=== PATIENT | male | born 1990 | race Caucasian/White ===

== ENCOUNTER 2019-08-29 03:46 | Emergency (ER) | payer OTHER ==
--- NOTE | 2019-08-29 04:01 | PDOC ---
Attending Attestation - Resident Resident Name: Elizabeth Maloney - ED Attending Attestation I have performed the following: I have examined & evaluated the patient, The case was reviewed & discussed with the resident, I agree w/resident's findings & plan - HPI HPI: 08/29/19 04:16 see resident hpi - Physicial Exam PE: 08/29/19 04:17 agree with resident exam - Medical Decision Making 08/29/19 04:17 29-year-old male with acute shortness of breath and wheezing after exposure to animal hair Plan for Solu-Medrol 125 mg IV and DuoNeb's x3 with plans for eventual DC home on a Medrol Dosepak and albuterol inhaler
[2019-08-29] MEDS ORDERED: ALBUTEROL SO4 2.5/IPRATROPIUM 0.5 INH SOL 3 ML VIAL.NEB. NEB ONE (04:02)
[2019-08-29 04:12] VITALS: BMI 25.4
[2019-08-29] MEDS ORDERED: methylPREDNISolone NA SUCC 125 MG/2 ML VIAL IVPB ONE (04:17)
--- NOTE | 2019-08-29 04:19 | PDOC ---
History of Present Illness - General Chief Complaint: Allergic Reaction Stated Complaint: Allergic Reaction Time Seen by Provider: 08/29/19 03:56 - History of Present Illness Initial Comments: 08/29/19 04:14 29 yo M PMH cat/dust/peanut allergies, 1ppd smoker since 13 years old, presenting with shortness of breath. Reports that he was visiting his friend, who owns cats and also was recently cleaning. Ran out of his home albuterol. States that this feels identical to his previous reactions. Specifically denies CP, N/V, fevers/chills, recent travel, sick contacts, recent illness. Past History - Past Medical History Allergies/Adverse Reactions: Allergies Allergy/AdvReac Type Severity Reaction Status Date / Time cat dander Allergy Verified 08/29/19 04:15 Home Medications: Ambulatory Orders Albuterol Sulfate Inhaler - [Ventolin HFA Inhaler -] 1 - 2 inh PO QID PRN #1 inhaler 08/29/19 - Psycho Social/Smoking Cessation Hx Smoking History: Never smoked Review of Systems - Review of Systems Able to Perform ROS?: Yes Constitutional: No: Chills, Diaphoresis, Fever HEENTM: No: Recent change in vision, Double Vision, Tinnitus, Throat Pain, Throat Swelling Respiratory: Yes: Shortness of Breath. No: Cough, Orthopnea Cardiac (ROS): No: Chest Pain, Edema, Irregular Heart Rate, Chest Tightness ABD/GI: No: Constipated, Diarrhea, Nausea, Vomiting : No: Flank Pain Musculoskeletal: No: Back Pain, Neck Pain Neurological: No: Headache, Numbness, Tingling, Weakness *Physical Exam - Vital Signs Last Vital Signs Temp Pulse Resp BP Pulse Ox 97.4 F L 89 19 148/89 98 08/29/19 03:46 08/29/19 03:46 08/29/19 03:46 08/29/19 03:46 08/29/19 03:46 - Physical Exam Comments: 08/29/19 04:16 Gen: well-developed, well-nourished, mild distress Neuro: AAOX4, CN II-XII intact, FTN intact, EOMI, PERRLA, 5/5 strength, SILT HEENT: atraumatic, normocephalic Neck: trachea midline, supple CV: regular rate, regular rhythm, no murmurs, rubs, or gallops Pulm: diffuse inspiratory and expiratory wheezing Abd: soft, non-distended, non-tender MSK: full ROM, intact pulses Extr: no edema, no deformities Skin: warm, dry 08/29/19 04:18 ED Treatment Course - RADIOLOGY Radiology Studies Ordered: Category Date Time Status CXRPORT [CHEST X-RAY PORTABLE*] [RAD] Stat Radiology 08/29/19 04:02 Ordered Medical Decision Making - Medical Decision Making 08/29/19 04:18 Concern for allergic reaction, SOB. - EKG - CXR port - Duoneb X3 - Solu-Medrol - reassess 08/29/19 04:29 Patient reassessed, feels significantly better, wheezing improved but still present. 08/29/19 04:52 Patient decline 2 other Duoneb, would like to go home. Wheezing completely resolved, patient feeling back to baseline. Will dc home. Discharge - Discharge Information Problems reviewed: Yes Clinical Impression/Diagnosis: Shortness of breath Condition: Fair Disposition: HOME - Additional Discharge Information Prescriptions: Albuterol Sulfate Inhaler - [Ventolin HFA Inhaler -] 1 - 2 inh PO QID PRN #1 inhaler PRN Reason: Short Of Breath/Wheezing - Follow up/Referral Referrals: Fuentes Barron MD [Primary Care Provider] - - Patient Discharge Instructions Patient Printed Discharge Instructions: DI for General Allergic Reactions Additional Instructions: You were seen with shortness of breath. This is likely to have been an allergic reaction. Please take your albuterol inhaler as needed. Follow up with your primary care doctor within one week. Return to the ED if you develop worsening symptoms. - Post Discharge Activity
[2019-08-29] MEDS ORDERED: methylPREDNISolone NA SUCC 125 MG/2 ML VIAL ONE (04:25)
[2019-08-29 05:08] VITALS: BP 142/84; PULSE 98; TEMP 98
--- NOTE | 2019-08-29 09:21 | EKG ---
Test Reason : Blood Pressure : / mmHG Vent. Rate : 104 BPM Atrial Rate : 104 BPM P-R Int : 126 ms QRS Dur : 098 ms QT Int : 368 ms P-R-T Axes : 068 075 049 degrees QTc Int : 483 ms SINUS TACHYCARDIA OTHERWISE NORMAL ECG NO PREVIOUS ECGS AVAILABLE Confirmed by MD Elana, Akin ([id number]) on 08/29/2019 9:21:00 AM Referred By: Confirmed By:Akin Huitron MD
== END 2019-08-29 05:00 | disposition home or self-care (01) ==
LOC: JER 03:46
PROC: 3E0F7GC Introduction of Other Therapeutic Substance into Respiratory Tract, Via Natural or Artificial Opening (ICD-10-PCS; principal; 2019-08-29)
PROC: 3E0333Z Introduction of Anti-inflammatory into Peripheral Vein, Percutaneous Approach (ICD-10-PCS; 2019-08-29)
DX: J30.81 Allergic rhinitis due to animal (cat) (dog) hair and dander (principal); R06.02 Shortness of breath; Z91.010 Allergy to peanuts
CPT/HCPCS: 93005; 93010; 94640; 96374; 99282-25

== ENCOUNTER 2020-07-18 12:18 | Emergency (ER) | payer OTHER ==
[2020-07-18 12:27] VITALS: BP 107/64; PULSE 98; TEMP 98.7; BMI 19.3
[2020-07-18] MEDS ORDERED: LIDOCAINE HCL 2% JELLY 10 ML CARTRIDGE PR ONE (12:45)
[2020-07-18] MEDS ORDERED: LIDOCAINE HCL 1%, 10 MG/ML (50 mL VIAL) INF ONE (12:45)
[2020-07-18] MEDS ORDERED: LIDOCAINE HCL 2% JELLY 10 ML CARTRIDGE ONE (12:45)
[2020-07-18] MEDS ORDERED: LIDOCAINE HCL 1%, 10 MG/ML (20ML VIAL) ONE (12:46)
--- NOTE | 2020-07-18 13:38 | PDOC ---
Suture Removal/Wound Check HPI - History of Present Illness Chief Complaint: Laceration Stated Complaint: LACERATION (LFT HAND) Time Seen by Provider: 07/18/20 12:38 Past History - Medical History Allergies/Adverse Reactions: Allergies Allergy/AdvReac Type Severity Reaction Status Date / Time peanut Allergy Intermediate Hives Verified 07/18/20 12:51 cat dander Allergy Verified 07/18/20 12:51 Home Medications: Ambulatory Orders NK [No Known Home Medication] 07/18/20 COPD: No - Psycho-Social/Smoking History Smoking History: Never smoked - Substance Abuse Hx (Audit-C & DAST Scrn) How often the patient has a drink containing alcohol: Monthly or less Number of drinks the patient has on a typical day: 1 or 2 How often the patient has six or more drinks on one occasion: Never Score: In Men: 4 or > Positive; In Women: 3 or > Positive: 1 Screen Result (Pos requires Nsg. Audit-10AR): Negative In the last yr the pt used illegal drug/Rx for NonMed reason: No Score: Yes response is considered Positive: 0 Screen Result (Positive result requires Nsg. DAST-10): Negative *Physical Exam - Vital Signs Last Vital Signs Temp Pulse Resp BP Pulse Ox 98.7 F 98 H 18 107/64 98 07/18/20 12:22 07/18/20 12:22 07/18/20 12:22 07/18/20 12:22 07/18/20 12:22
--- NOTE | 2020-07-18 13:43 | PDOC ---
History of Present Illness - History of Present Illness Initial Comments: 07/18/20 13:38 30yo healthy M w/ no PMHx presents w/ 2cm linear laceration to the L thenar eminence. He was cutting down boxes with a box chipper when he accidentally sliced himself. This was inadvertent. He presented w/ the wound wrapped, and it was oozing slowly when the dressing was removed. No fevers, bleeding disorders, medications. VS wnl and stable. Tetanus w/in the last 5 years. Thumb: Able to flex, extend, oppose, ADduct and ABduct. Cap refill <2sec. sensation is decreased - endorses paresthesia in the thumb and thenar eminence only. no scaphoid tenderness. no wrist complaints. No MCP, PIP, or DCP complaints. No other fingers affected. Able to demonstrate intact radial, median, and ulnar nerve function. <Brian Araiza - Last Filed: 07/18/20 13:53> <Cristy Hinds - Last Filed: 07/18/20 13:55> - General Chief Complaint: Laceration Stated Complaint: LACERATION (LFT HAND) Time Seen by Provider: 07/18/20 12:38 Past History - Medical History COPD: No - Psycho-Social/Smoking History Smoking History: Never smoked - Substance Abuse Hx (Audit-C & DAST Scrn) How often the patient has a drink containing alcohol: Monthly or less Number of drinks the patient has on a typical day: 1 or 2 How often the patient has six or more drinks on one occasion: Never Score: In Men: 4 or > Positive; In Women: 3 or > Positive: 1 Screen Result (Pos requires Nsg. Audit-10AR): Negative In the last yr the pt used illegal drug/Rx for NonMed reason: No Score: Yes response is considered Positive: 0 Screen Result (Positive result requires Nsg. DAST-10): Negative <Brian Araiza - Last Filed: 07/18/20 13:53> <Cristy Hinds - Last Filed: 07/18/20 13:55> - Medical History Allergies/Adverse Reactions: Allergies Allergy/AdvReac Type Severity Reaction Status Date / Time peanut Allergy Intermediate Hives Verified 07/18/20 12:51 cat dander Allergy Verified 07/18/20 12:51 Home Medications: Ambulatory Orders NK [No Known Home Medication] 07/18/20 Review of Systems - Review of Systems Able to Perform ROS?: Yes Constitutional: No: Chills, Fever HEENTM: No: Symptoms Reported Respiratory: No: Symptoms reported Cardiac (ROS): No: Symptoms Reported ABD/GI: No: Symptoms Reported : No: Symptoms Reported Musculoskeletal: Yes: Other (Thumb: Able to flex, extend, oppose, ADduct and ABduct. Cap refill <2sec. sensation is decreased - endorses paresthesia in the thumb and thenar eminence only. no scaphoid tenderness. no wrist complaints.). No: Joint Pain, Muscle Pain Integumentary: Yes: Lesions (2cm linear lesion to the L thenar eminence ) Neurological: Yes: Numbness (L thenar eminence), Paresthesia (L thenar eminence), Tingling (L thenar eminence) Endocrine: No: Symptoms Reported Hematologic/Lymphatic: No: Symptoms Reported All Other Systems: Reviewed and Negative <Brian Araiza - Last Filed: 07/18/20 13:53> *Physical Exam - Vital Signs Last Vital Signs Temp Pulse Resp BP Pulse Ox 98.7 F 98 H 18 107/64 98 07/18/20 12:22 07/18/20 12:22 07/18/20 12:22 07/18/20 12:22 07/18/20 12:22 - Physical Exam General Appearance: Yes: Nourished, Appropriately Dressed. No: Apparent Distress HEENT: positive: EOMI Neck: positive: Supple Respiratory/Chest: positive: Lungs Clear. negative: Chest Tender Cardiovascular: positive: Regular Rhythm, Regular Rate Gastrointestinal/Abdominal: positive: Normal Bowel Sounds, Soft Extremity: positive: Normal Capillary Refill, Normal Range of Motion (Thumb: Able to flex, extend, oppose, ADduct and ABduct. Cap refill <2sec. sensation is decreased - endorses paresthesia in the thumb and thenar eminence only. no scaphoid tenderness. no wrist complaints.). negative: Normal Inspection (Thumb: Able to flex, extend, oppose, ADduct and ABduct. Cap refill <2sec. sensation is decreased - endorses paresthesia in the thumb and thenar eminence only. no scaphoid tenderness. no wrist complaints.), Delayed Capillary Refill Neurologic: positive: Fully Oriented, Alert, Normal Response <Brian Araiza - Last Filed: 07/18/20 13:53> - Vital Signs Last Vital Signs Temp Pulse Resp BP Pulse Ox 98.7 F 98 H 18 107/64 98 07/18/20 12:22 07/18/20 12:22 07/18/20 12:22 07/18/20 12:22 07/18/20 12:22 <Cristy Hinds - Last Filed: 07/18/20 13:55> Procedures - Laceration/Wound Repair Left Upper Dorsal Hand Wound Length: to 2.5 cm Wound Explored: clean, no foreign body present Wound's Depth, Shape: linear Irrigated w/ Saline: Yes Betadine Prep: No (Chlorhexidine) Anesthesia: 1% Lidocaine Amount of Anesthetic (ccs): 7 Wound Debrided: moderate Wound Repaired With: Sutures Suture Size/Type: 4:0 Number of Sutures: 7 Sterile Dressing Applied: No Progress: 07/18/20 13:47 wound was measured to be ~2cm and linear. topical 1% lidocaine w/o epi was applied to wound wound was irrigated and then area was numbed with injected lidocaine 1% w/o epi borders were well approximated w/ 4-0 nylon x7 using simple interrupted. pt tolerated procedure well. bacitracin applied to lesion. <Brian Araiza - Last Filed: 07/18/20 13:53> ED Treatment Course - Medications Given in the ED: ED Medications Discontinued Medications Generic Name Dose Route Start Last Admin Trade Name Freq PRN Reason Stop Dose Admin Lidocaine HCl 10 ml 07/18/20 12:45 07/18/20 12:49 Xylocaine 1% INF 07/18/20 12:46 10 ml ONCE ONE Administration Lidocaine HCl 20 ml 07/18/20 12:45 07/18/20 12:49 Xylocaine 2% Uro-Jet UT 07/18/20 12:46 20 ml ONCE ONE Administration <Brian Araiza - Last Filed: 07/18/20 13:53> - Medications Given in the ED: ED Medications Discontinued Medications Generic Name Dose Route Start Last Admin Trade Name Freq PRN Reason Stop Dose Admin Lidocaine HCl 10 ml 07/18/20 12:45 07/18/20 12:49 Xylocaine 1% INF 07/18/20 12:46 10 ml ONCE ONE Administration Lidocaine HCl 20 ml 07/18/20 12:45 07/18/20 12:49 Xylocaine 2% Uro-Jet UT 07/18/20 12:46 20 ml ONCE ONE Administration <Cristy Hinds - Last Filed: 07/18/20 13:55> Discharge - Discharge Information Problems reviewed: Yes - Admission No <Brian Araiza - Last Filed: 07/18/20 13:53> - Discharge Information Problems reviewed: Yes - Admission No <Cristy Hinds - Last Filed: 07/18/20 13:55> - Discharge Information Clinical Impression/Diagnosis: Laceration Condition: Improved Disposition: ELOPED - Follow up/Referral Referrals: Jose Guadarrama MD [Staff Physician] - - Patient Discharge Instructions Patient Printed Discharge Instructions: DI for Laceration Repair, DI for Suture Removal Additional Instructions: You came to the ED with a laceration. We sewed up the lesion with non absorbable sutures and applied bacitracin ointment to the area. Please keep the area dry. Try to limit bending the thumb for the next 7 days. In 7 days, return to the ED or go to your PCP's office for suture removal. Come back to the ED immediately if you notice streaking (red lines advancing up the arm from the lesion), swelling that is very painful, the lesion feels hot, or you start to see pus coming out. Also come to the ED if you develop a fever, or if you develop numbness or discoloration of the hand or finger.
--- NOTE | 2020-07-18 13:58 | PDOC ---
Documentation entered by Hi Pickett SCRIBE, acting as scribe for Cristy Hinds MD. Cristy Hinds MD: This documentation has been prepared by the Loreto retana inHi SCRIBE, under my direction and personally reviewed by me in its entirety. I confirm that the documentation accurately reflects all work, treatment, procedures, and medical decision making performed by me. Attending Attestation - Resident Resident Name: Brian Araiza - ED Attending Attestation I have performed the following: I have examined & evaluated the patient, The case was reviewed & discussed with the resident, I agree w/resident's findings & plan, Exceptions are as noted - HPI HPI: 07/18/20 13:25 The patient is a 30 year old male with no significant past medical history who presents to the emergency department for evaluation of an accidental laceration on his left thenar eminence from when he was using a call box wirer to breakdown boxes this afternoon. The patient endorses numbness in the area. He reports his wrist was not impacted, complete range of motion, capillary refill in less than two seconds, and ulnar, radial, and median function intact. Denies prior trauma to the hand.The patient denies chest/abdominal/back pain, cough, and shortness of breath. Denies fever, chills, nausea, vomiting, and/or any GI symptoms. Denies any symptoms. Denies any other symptoms. Allergies: peanut, cat dander - Physicial Exam PE: 07/18/20 13:56 patient eloped from the ED prior to my exam. laceration repaired by pricing intern and preattending. - Medical Decision Making 07/18/20 13:57 Pt presents to the ED complaining of laceration to the hand. repaired in the ED. Patient eloped prior to my exam. Discharge - Discharge Information Problems reviewed: Yes Clinical Impression/Diagnosis: Laceration, Eloped from emergency department Condition: Improved Disposition: ELOPED - Follow up/Referral Referrals: Jose Guadarrama MD [Staff Physician] - - Patient Discharge Instructions Patient Printed Discharge Instructions: DI for Laceration Repair, DI for Suture Removal Additional Instructions: You came to the ED with a laceration. We sewed up the lesion with non absorbable sutures and applied bacitracin ointment to the area. Please keep the area dry. Try to limit bending the thumb for the next 7 days. In 7 days, return to the ED or go to your PCP's office for suture removal. Come back to the ED immediately if you notice streaking (red lines advancing up the arm from the lesion), swelling that is very painful, the lesion feels hot, or you start to see pus coming out. Also come to the ED if you develop a fever, or if you develop numbness or discoloration of the hand or finger. - Post Discharge Activity
== END 2020-07-18 13:56 | disposition left against medical advice (07) ==
LOC: JER 12:18
PROC: 0HQGXZZ Repair Left Hand Skin, External Approach (ICD-10-PCS; principal; 2020-07-18)
DX: S61.412A Laceration without foreign body of left hand, initial encounter (principal)
CPT/HCPCS: 99283-25